=== PATIENT | male | born 1980 | race Caucasian/White ===

== ENCOUNTER 2024-05-31 16:39 | Emergency (ER) | payer BC, SELFPAY ==
[2024-05-31 16:41] VITALS: BP 155/102
--- NOTE | 2024-05-31 16:46 | ED.PDOC.TRB ---
ED Provider Triage
-
Patient seen by provider in Triage?: Seen in Triage
43-year-old male here with intermittent episodes of lightheadedness especially when standing. No associated chest pain no recent travel. He occasionally feels abnormal heartbeat or palpitations. Vital signs stable at triage EKG and labs pending.
[2024-05-31 17:19] LABS: % Basophils 0.9 % (0-2); % Eosinophils 2.2 % (0-6); % Immature Granulocytes 0.2 % (0-0.5); % Lymphocytes 29.4 % (20.5-51.1); % Monocytes 6.7 % (1.7-9.3); % Neutrophils 60.6 % (42.2-75.2); Absolute Basophils 0.1 10^3/uL (0-0.2); Absolute Eosinophils 0.1 10^3/uL (0-0.7); Absolute Lymphocytes 1.6 10^3/uL (1.2-3.4); Absolute Monocytes 0.4 10^3/uL (0.1-0.6); Absolute Neutrophils 3.4 10^3/uL (1.4-6.5); Hematocrit 44.1 % (39.0-52.0); Hemoglobin 15.5 g/dL (13.0-18.0); Mean Corp Hgb Conc. 35.1 g/dL (33.0-37.0); Mean Corpuscular Hgb 30.5 pg (27.0-31.0); Mean Corpuscular Volume 86.8 fL (80.0-94.0); Mean Platelet Volume 9.3 fL (7.4-10.4); Nucleated Red Blood Cells % 0 % (-); Platelet Count 264 10^3/uL (130-400); Red Blood Cell Count 5.08 10^6/uL (4.70-6.10); Red Cell Dist. Width 12.3 % (11.5-14.5); White Blood Cell Count 5.6 10^3/uL (4.8-10.8)
[2024-05-31 17:22] VITALS: BP 150/95
[2024-05-31 17:36] LABS: ALT (SGPT) 17 U/L (0-50); AST (SGOT) 25 U/L (17-59); Albumin 4.6 g/dl (3.5-5.0); Alkaline Phosphatase 75 U/L (38-126); Blood Urea Nitrogen 10 mg/dl (9-20); Calcium 9.7 mg/dl (8.4-10.2); Carbon Dioxide 32 mmol/L (22-30); Chloride 99 mmol/L (98-107); Glucose 140 mg/dl (70-99); Potassium 4.4 mmol/L (3.5-5.1); Sodium 141 mmol/L (135-145); Total Bilirubin 0.5 mg/dl (0.2-1.3); Total Protein 7.2 g/dl (6.3-8.2); eGFR > 60.00
[2024-05-31] MEDS: NSS 1000 IV (17:43)
--- NOTE | 2024-05-31 17:44 | ED.GENMED ---
History of Present Illness
General
Chief Complaint: Fainting Sensation
Source: patient
Time Seen by Provider: 05/31/24 17:15
History of Present Illness
History of Present Illness:
43yoM with a history of Crohn's disease not on medications presenting for evaluation after a near syncopal episode. Patient was standing at a meeting about 2 hours ago when he suddenly started to feel lightheaded. He states he tried to feel his
pulse but his pulse felt weak. He also felt short of breath at that time. Symptoms have resolved and he is currently asymptomatic. Patient had a blunt flank injury about 5-6 weeks ago and developed hematuria afterwards. He was seen at [facility] at that time and was diagnosed with a minor kidney injury. He states that he has not felt well since that time. Patient was seen again in [place] ED about 2-3 weeks ago for pleuritic chest pain. CTA was negative for pulmonary embolism at
that time and he was diagnosed with pleurisy.
Past History
Past History
ED Past Medical History: Other (Crohn's, anemia)
ED Past Surgical History: Bowel resection
Social History
Tobacco: Non-smoker
Alcohol: None
Living: with family
Phy Exam
General Physical Exam
General Presentation: well appearing and no apparent distress
General age: appears stated age
General Skin: warm and dry
General Habitus: normal
General Mental: alert
General Hydration: appears well hydrated
Cardiovascular Exam
Cardiovascular Exam: regular rate/rhythm, no edema and no murmur
Pulmonary Exam
Pulmonary Exam: lungs clear, no respiratory distress, no crackles and no wheezing
[place] Coma Scale
Eye Opening: Spontaneous
Verbal Response: Oriented
Motor Response: Obeys Commands
GCS Total Score: 15
Skin Exam
Skin Exam: normal color and warm/dry
Psychiatric Exam
Psychiatric Exam: normal mood/affect
Course
Orders/Labs/Results
Orders:
Orders
05/31/24 16:42
Electrocardiogram (*1) Urgent
Reason for Study: Palpitations
EKG- Treatment ONCE
05/31/24 16:54
Complete Blood Count/With Diff Urgent
Comprehensive Metabolic Panel Urgent
05/31/24 17:32
Cardiac Monitoring- Treatment ONCE
0.9% Sodium Chloride 1000 ml [Nss] 1,000 ml IV BOLUS
05/31/24 17:44
Troponin I Urgent
Abnormal Lab Results
05/31/24
16:54
Carbon Dioxide 32 H mmol/L
(22-30)
Glucose 140 H mg/dl
(70-99)
05/31/24 16:54
05/31/24 16:54
Vital Signs
Initial and Last Documented VS:
Initial Vital Signs
Temp Pulse Resp BP Pulse Ox
98.1 F 87 20 155/102 100
05/31/24 16:41 05/31/24 16:41 05/31/24 16:41 05/31/24 16:41 05/31/24 16:41
Last Documented Vital Signs
Temp Pulse Resp BP Pulse Ox
98.1 F 62 14 150/95 100
05/31/24 16:41 05/31/24 18:00 05/31/24 17:30 05/31/24 17:22 05/31/24 17:45
MDM/Problems Addressed
Differential Diagnosis Includes:
43yoM here after a near syncopal episode 2 hours ago. No LOC. [place] short of breath during the episode. Currently asymptomatic. He is afebrile and hemodynamically stable. He is well appearing in no distress. Exam is reassuring. Differential diagnosis
includes but is not limited to: orthostatic hypotension, dehydration, vasovagal episode, arrhythmia
Initial ED plan: Place on cardiac cath rn. Check cardiac labs, EKG, and CXR. IV fluid bolus.
*EKG
Interpreted by ED Provider?: Yes
EKG Intrepretation Date: 05/31/24
Heart Rate: 65
Rate: normal
Rhythm: sinus
[place]: normal axis
Interval: normal interval
QRS Pattern: normal QRS
Ischemia: no ischemia
*Critical Care Note
Total Time (30-74mins, 75-104mins- exclusive of procedures): Not Applicable
Update Note
Update Note:
Labs unremarkable including normal blood counts, electrolytes, glucose. EKG shows NSR without ischemic changes and ectopy. Patient declining CXR. He remains asymptomatic on reassessment and vitals are stable. No indication for hospitalization. He
was advised to f/u with his PCP. ED return precautions discussed. He was discharged in stable condition.
ED Attending Note
-
Portions of this chart may have been created with voice recognition software.� Occasional wrong word or��sound alike� substitutions may have occurred due to the inherent limitations of voice recognition software.
Discharge Plan
Departure
Patient Disposition: Home (Routine Discharge)
Date of Disposition: 05/31/24
Time of Disposition: 18:52
Patient with high blood pressure during this ER visit?: Yes
Discharge Problem:
Near syncope
Instructions: Near Fainting (DC)
Prescriptions:
No Action
No Meds [No Current Medications]
0
Referrals:
Siva Eckert MD [Family Provider] -
Activity Restrictions/Additional Instructions:
Please follow-up with your family doctor. Return to the ER with any new or worsening symptoms.
Interventions
Interventions:
*Risk Screen - Suicide Last Done: 05/31/24 17:23
*General Assessment Last Done: 05/31/24 17:23
*Neglect/Abuse Screening Last Done: 05/31/24 17:23
ED- Fall Risk Assessment Last Done: 05/31/24 17:23
*ED COVID-19 Vaccine History Last Done: 05/31/24 17:23
*Nursing Disposition Last Done: 05/31/24 19:04
ED- Cardiac Assessment Last Done: 05/31/24 17:23
ED- Neurological Assessment Last Done: 05/31/24 17:23
Discharge Date and Time
Discharge Date/Time: 05/31/24 19:04
Print Language: GREENLAND[place]
[2024-05-31 18:13] LABS: Troponin I < 0.012 ng/ml
== END 2024-05-31 19:04 | disposition home or self-care (01) ==
LOC: EMR 16:39
PROVIDERS: Physician Assistant; EMERGENCY PHYSICIAN Emergency Medicine; FAMILY PHYSICIAN Family Medicine
DX: R55 Syncope and collapse (principal); R06.02 Shortness of breath; R03.0 Elevated blood-pressure reading, without diagnosis of hypertension; K50.90 Crohn's disease, unspecified, without complications; D64.9 Anemia, unspecified
CPT/HCPCS: 99284; 96360; 80053; 84484; 85025; 93005